=== PATIENT | female | born 1950 | race Two or more races ===

== ENCOUNTER 2016-06-27 13:50 | Emergency (ER) | payer MEDICAID ==
--- NOTE | 2016-06-27 14:24 | ER Document Report ---
ED Extremity Problem, Lower - General Chief Complaint: Knee Pain Stated Complaint: KNEE PAIN Mode of Arrival: Medic Information source: Transfer Record Notes: Patient presents with a three-day history of right knee pain and swelling. Patient denies any injury. Patient denies any recent illness. TRAVEL OUTSIDE OF THE [place] IN LAST 30 DAYS: No - HPI Patient complains to provider of: Pain, Swelling Location: Knee Occurred: Other - 3 days Onset/Duration: Persistent Quality of pain: Achy Pain Level: 3 Context: denies: Recent surgery Exacerbated by: Movement Relieved by: Nothing - Related Data Allergies/Adverse Reactions: No Known Allergies Allergy (Verified 09/17/15 10:50) Past Medical History - General Information source: Patient, Transfer Record Cannot obtain history due to: Other - Patient with reported history of dementia although seems to answer questions appropriately - Social History Smoking Status: Never Smoker Frequency of alcohol use: None Drug Abuse: None Lives with: [facility] Family History: Reviewed & Not Pertinent - Past Medical History Cardiac Medical History: Reports: Hx Hypercholesterolemia, Hx Hypertension Neurological Medical History: Reports: Hx Seizures - Negative EEG Endocrine Medical History: Reports: Hx Diabetes Mellitus Type 2, Hx Hypothyroidism GI Medical History: Reports: Hx Gastroesophageal Reflux Disease Psychiatric Medical History: Reports: Hx Bipolar Disorder - skitzoaffective dementia, Hx Dementia, Hx Depression Past Surgical History: Reports: Hx Tubal Ligation - Immunizations Hx Diphtheria, Pertussis, Tetanus Vaccination: No Review of Systems - Review of Systems Constitutional: No symptoms reported. denies: Fever EENT: No symptoms reported Cardiovascular: No symptoms reported Respiratory: No symptoms reported Gastrointestinal: No symptoms reported. denies: Vomiting Genitourinary: No symptoms reported Female Genitourinary: No symptoms reported Musculoskeletal: Joint pain - Right knee Skin: No symptoms reported Hematologic/Lymphatic: No symptoms reported Neurological/Psychological: No symptoms reported Physical Exam - Vital signs Vitals: Temp Pulse Resp BP Pulse Ox 97.6 F 103 H 18 139/69 H 94 06/27/16 14:02 06/27/16 14:02 06/27/16 14:02 06/27/16 14:02 06/27/16 14:02 - General General appearance: Appears well, Alert In distress: None - Respiratory Respiratory status: No respiratory distress Chest status: Nontender Breath sounds: Normal Chest palpation: Normal - Cardiovascular Rhythm: Regular Heart sounds: S1 appreciated, S2 appreciated - Abdominal Inspection: Normal Distension: No distension Bowel sounds: Normal Tenderness: Nontender - Back Back: Normal. No: CVA tenderness - Extremities General upper extremity: Normal inspection, Normal ROM General lower extremity: Edema - Right knee, Normal ROM Knee: Tender - Right knee tenderness, Joint effusion - Mild. No: Ecchymosis, Laxity with valgus stress, Laxity with varus stress - Neurological Neuro grossly intact: Yes Cognition: Normal Orientation: AAOx4 [place] Coma Scale Eye Opening: Spontaneous Dimitri Coma Scale Verbal: Oriented [place] Coma Scale Motor: Obeys Commands Dimitri Coma Scale Total: 15 - Psychological Associated symptoms: Normal affect, Normal mood - Skin Skin Temperature: Warm Skin Moisture: Dry Skin Color: Normal Course - Re-evaluation Re-evalutation: 06/27/16 14:[address] Nichols, Dr. Nichols to bedside for examination, does not suspect septic joint. - Vital Signs Vital signs: Temp Pulse Resp BP Pulse Ox 98.7 F 100 18 138/43 H 93 06/27/16 17:45 06/27/16 17:45 06/27/16 14:02 06/27/16 17:45 06/27/16 17:45 - Laboratory Result Diagrams: 06/27/16 16:13 06/27/16 16:13 Laboratory results interpreted by me: 06/27/16 06/27/16 16:13 16:13 RDW 14.4 H Creatinine 0.50 L Glucose 172 H AST 12 L Labs- Entire Visit 06/27/16 06/27/16 16:13 16:13 WBC 8.6 RBC 4.25 Hgb 12.1 Hct 36.9 MCV 87 MCH 28.4 MCHC 32.7 RDW 14.4 H Plt Count 225 Seg Neutrophils % 64.9 Lymphocytes % 20.5 Monocytes % 9.4 Eosinophils % 4.7 Basophils % 0.5 Absolute Neutrophils 5.6 Absolute Lymphocytes 1.8 Absolute Monocytes 0.8 Absolute Eosinophils 0.4 Absolute Basophils 0.0 ESR 16 Sodium 140.1 Potassium 4.3 Chloride 103 Carbon Dioxide 27 Anion Gap 10 BUN 20 Creatinine 0.50 L Est GFR ( Amer) > 60 Est GFR (Non-Af Amer) > 60 Glucose 172 H Uric Acid 6.5 Calcium 9.9 Total Bilirubin 0.3 Direct Bilirubin 0.0 AST 12 L ALT 13 Alkaline Phosphatase 83 C-Reactive Protein 5.9 Total Protein 6.4 Albumin 3.8 06/27/16 18:43 - Diagnostic Test Radiology reviewed: Reports reviewed Discharge - Discharge Clinical Impression: Arthritis Knee pain, right Qualifiers: Chronicity: unspecified Qualified Code(s): M25.561 - Pain in right knee Condition: Stable Disposition: HOME, SELF-CARE Instructions: Arthritis ([facility]), Acetaminophen Additional Instructions: Return immediately for any new or worsening symptoms Followup with your primary care provider, call tomorrow to make a followup appointment Follow up with orthopedic Dr. for any continued right knee joint pain You may take Tylenol [id number] to help with your pain symptoms. Referrals: BRITNEY KIMBROUGH MD [Primary Care Provider] - Follow up tomorrow [facility] [Provider Group] - Follow up in 3-5 days
[2016-06-27 16:24] LABS: ABSOLUTE EOSINOPHILS # (AUTO) 0.4 10^3/uL (0.0-0.6); ABSOLUTE LYMPHOCYTES (AUTO) 1.8 10^3/uL (0.5-4.7); ABSOLUTE MONOCYTES (AUTO) 0.8 10^3/uL (0.1-1.4); ABSOLUTE NEUT (AUTO) 5.6 10^3/uL (1.7-8.2); BASOPHILS % (AUTO) 0.5 % (0-2); EOSINOPHILS % (AUTO) 4.7 % (0-6); HEMATOCRIT 36.9 % (36.0-47.0); HEMOGLOBIN 12.1 g/dL (12.0-15.5); HGB HCT DIFFERENCE -0.6; LYMPHOCYTES % (AUTO) 20.5 % (13-45); MEAN CORPUSCULAR HEMOGLOBIN 28.4 pg (27.0-33.4); MEAN CORPUSCULAR HGB CONC 32.7 g/dL (32.0-36.0); MEAN CORPUSCULAR VOLUME 87 fl (80-97); MONOCYTES % (AUTO) 9.4 % (3-13); RED BLOOD COUNT 4.25 10^6/uL (3.72-5.28); RED CELL DISTRIBUTION WIDTH 14.4 % (11.5-14.0); SEGMENTED NEUTROPHILS % (AUTO) 64.9 % (42-78); WHITE BLOOD COUNT 8.6 10^3/uL (4.0-10.5)
[2016-06-27 16:40] LABS: ALANINE AMINOTRANSFERASE 13 U/L (9-52); ALBUMIN 3.8 g/dL (3.5-5.0); ALKALINE PHOSPHATASE 83 U/L (38-126); ANION GAP 10 (5-19); ASPARTATE AMINO TRANSFERASE 12 U/L (14-36); BILIRUBIN,TOTAL 0.3 mg/dL (0.2-1.3); BLOOD UREA NITROGEN 20 mg/dL (7-20); C-REACTIVE PROTEIN 5.9 mg/L (<10.0); CALCIUM 9.9 mg/dL (8.4-10.2); CARBON DIOXIDE 27 mmol/L (22-30); CHLORIDE 103 mmol/L (98-107); GLUCOSE 172 mg/dL (75-110); POTASSIUM 4.3 mmol/L (3.6-5.0); SODIUM 140.1 mmol/L (137-145); TOTAL PROTEIN 6.4 g/dL (6.3-8.2); URIC ACID 6.5 mg/dL (2.5-7.5)
[2016-06-27] MEDS ORDERED: ACETAMINOPHEN 325 MG TABLET PO ONE (17:00)
[2016-06-27 17:01] LABS: ERYTHROCYTE SEDIMENTATION RATE 16 mm/hr (0-30)
[2016-06-27 19:36] VITALS: BP 117/94
== END 2016-06-27 19:40 | disposition home or self-care (01) ==
LOC: ER 13:50
DX: M25.561 Pain in right knee (principal); M79.89 Other specified soft tissue disorders
CPT/HCPCS: 99284; 36415; 84550; 85025; 85652; 86140; 80053; 73564; J3490

== ENCOUNTER → 2016-10-05 | Outpatient (CLI) | payer MEDICAID ==
--- NOTE | 2016-10-05 12:30 | RADIOLOGY REPORT (SQ) ---
EXAM DESCRIPTION: MRI CERVICAL SPINE WITHOUT COMPLETED DATE/TIME: 10/05/2016 12:16 pm REASON FOR STUDY: RADICULOPATHY, CERVICAL REGION M25.511 PAIN IN RIGHT SHOULDER M25.512 PAIN IN LE FT SHOULDER M47.12 OTHER SPONDYLOSIS WITH MYELOPATHY, CERVICAL REGION COMPARISON: None. TECHNIQUE: Sagittal and Axial imaging includes T1, T2, STIR and gradient echo sequences. LIMITATIONS: Patient motion. FINDINGS: ALIGNMENT: Anatomic. VERTEBRAE: Intact. BONE MARROW: Normal. No marrow replacement or reactive changes. DISCS: Desiccation multiple levels. HARDWARE: None in the spine. CORD AND BASE OF BRAIN: Normal in size and signal intensity. SOFT TISSUES: No soft tissue masses. C1-C2: No significant spinal stenosis. C2-C3: Moderate spinal stenosis due to disc osteophyte complex and ligament thickening. Severe neura l foraminal narrowing bilaterally. C3-C4: Moderate -severe spinal stenosis. Severe neural foraminal narrowing bilaterally. C4-C5: Moderate spinal stenosis. Severe neural foraminal narrowing bilaterally. C5-C6: Mild spinal stenosis. Moderate right and severe left neural foraminal narrowing. C6-C7: No significant spinal stenosis. Severe neural foraminal narrowing bilaterally. C7-T1: Minimal spinal stenosis. Severe neural foraminal narrowing bilaterally. UPPER THORACIC: Incompletely imaged. No significant spinal stenosis or exit foraminal stenosis. OTHER: No other significant finding. IMPRESSION: Spinal stenosis at multiple levels, most severe at C3-4. Neural foraminal narrowing ass ociated with uncovertebral arthropathy. TECHNICAL DOCUMENTATION: JOB ID: [id number] [employer]- All Rights Reserved
== END ==
LOC: RAD 10:48
PROVIDERS: ATTEND Family Medicine Geriatric Medicine
DX: M25.511 Pain in right shoulder (principal); M25.512 Pain in left shoulder; M47.12 Other spondylosis with myelopathy, cervical region; M62.81 Muscle weakness (generalized)
CPT/HCPCS: 72141

== ENCOUNTER 2017-06-07 12:26 | Emergency (ER) | payer MEDICAID, MEDICARE ==
[2017-06-07] MEDS ORDERED: BENZONATATE 100 MG CAPSULE PO ONE (12:59)
--- NOTE | 2017-06-07 14:01 | RADIOLOGY REPORT (SQ) ---
EXAM DESCRIPTION: CHEST SINGLE VIEW COMPLETED DATE/TIME: 06/07/2017 1:27 pm REASON FOR STUDY: cough COMPARISON: August 2015 EXAM PARAMETERS: NUMBER OF VIEWS: One view. TECHNIQUE: Single frontal radiographic view of the chest acquired. RADIATION DOSE: NA LIMITATIONS: Patient is slightly rotated on the current study the FINDINGS: LUNGS AND PLEURA: No opacities, masses or pneumothorax. No pleural effusion. MEDIASTINUM AND HILAR STRUCTURES: No masses. Contour normal. HEART AND VASCULAR STRUCTURES: Allowing for the rotation the configuration of the heart mediastinal s tructures is unchanged. Cardiac silhouette is at the upper limits of normal in size. Tortuous thora cic aorta is seen. BONES: No acute findings. HARDWARE: None in the chest. OTHER: No other significant finding. IMPRESSION: NO ACUTE RADIOGRAPHIC FINDING IN THE CHEST. TECHNICAL DOCUMENTATION: JOB ID: [id number] [employer]- All Rights Reserved
--- NOTE | 2017-06-07 14:22 | ER Document Report ---
ED General - General Chief Complaint: Productive Cough Stated Complaint: COUGH Time Seen by Provider: 06/07/17 12:35 TRAVEL OUTSIDE OF THE [place] IN LAST 30 DAYS: No - HPI Patient complains to provider of: Cough Notes: Patient coming in for local snf at her request for evaluation of cough. Patient states coughing translation for the last 1-2 months. Patient is unaware if she been on any antibiotics. Patient denies any production of cough denies any fevers chills nausea vomiting diarrhea. Upon reviewing of the snf records patient recently finished Tamiflu Cipro and has been receiving duo nebs. Patient upon my evaluation resting comfortably speaking full sentences no signs of any obvious distress. - Related Data Allergies/Adverse Reactions: No Known Allergies Allergy (Verified 09/17/15 10:50) Past Medical History - Social History Smoking Status: Never Smoker Chew tobacco use (# tins/day): No Frequency of alcohol use: None Drug Abuse: None Family History: Reviewed & Not Pertinent Patient has suicidal ideation: No Patient has homicidal ideation: No - Past Medical History Cardiac Medical History: Reports: Hx Hypercholesterolemia, Hx Hypertension Neurological Medical History: Reports: Hx Seizures - Negative EEG Endocrine Medical History: Reports: Hx Diabetes Mellitus Type 2, Hx Hypothyroidism Renal/ Medical History: Denies: Hx Peritoneal Dialysis GI Medical History: Reports: Hx Gastroesophageal Reflux Disease Psychiatric Medical History: Reports: Hx Bipolar Disorder - skitzoaffective dementia, Hx Dementia, Hx Depression Past Surgical History: Reports: Hx Tubal Ligation - Immunizations Hx Diphtheria, Pertussis, Tetanus Vaccination: No Review of Systems - Review of Systems Constitutional: No symptoms reported EENT: No symptoms reported Cardiovascular: No symptoms reported Respiratory: Cough Gastrointestinal: No symptoms reported Genitourinary: No symptoms reported Female Genitourinary: No symptoms reported Musculoskeletal: No symptoms reported Skin: No symptoms reported Hematologic/Lymphatic: No symptoms reported Neurological/Psychological: No symptoms reported Physical Exam - Vital signs Interpretation: Normal - General General appearance: Appears well, Alert - HEENT Head: Normocephalic, Atraumatic Eyes: Normal Pupils: PERRL - Respiratory Respiratory status: No respiratory distress Chest status: Nontender Breath sounds: Normal Chest palpation: Normal - Cardiovascular Rhythm: Regular Heart sounds: Normal auscultation Murmur: No - Abdominal Inspection: Normal Distension: No distension Bowel sounds: Normal Tenderness: Nontender Organomegaly: No organomegaly - Back Back: Normal, Nontender - Extremities General upper extremity: Normal inspection, Nontender, Normal color, Normal ROM , Normal temperature General lower extremity: Normal inspection, Nontender, Normal color, Normal ROM , Normal temperature, Normal weight bearing. No: Alejandro's sign - Neurological Neuro grossly intact: Yes Cognition: Normal [place] Coma Scale Eye Opening: Spontaneous [place] Coma Scale Verbal: Oriented [place] Coma Scale Motor: Obeys Commands Dimitri Coma Scale Total: 15 Speech: Normal Motor strength normal: LUE, RUE, LLE, RLE Sensory: Normal - Psychological Associated symptoms: Normal affect, Normal mood - Skin Skin Temperature: Warm Skin Moisture: Dry Skin Color: Normal Course - Re-evaluation Re-evalutation: 06/07/17 14:22 Chest x-ray was performed showing no signs of infectious pathology. Patient vital signs are otherwise normal no signs of hypoxia fever patient will be discharged home with a prescription for Tessalon Perles. Discharge - Discharge Clinical Impression: Cough Condition: Good Disposition: HOME, SELF-CARE Instructions: Cough Suppressant & Expectorant Medications Additional Instructions: Follow-up with your primary care physician in 3-5 days take medication as prescribed return to ER for any other concerning Prescriptions: Benzonatate [Tessalon Perles 100 mg Capsule] 100 mg PO ASDIR PRN #40 capsule PRN Reason:
[2017-06-07 15:36] VITALS: BP 133/81
== END 2017-06-07 15:35 | disposition home or self-care (01) ==
LOC: ER 12:26
DX: R05 Cough (principal)
CPT/HCPCS: 99284; 71045; J3490

== ENCOUNTER 2018-07-02 05:55 | Inpatient (IN) | payer MEDICARE, MEDICAID ==
[2018-07-02] MEDS ORDERED: IMIPENEM/CILASTATIN SODIUM INJ 500 MG VIAL IV ONE (06:04)
[2018-07-02] MEDS ORDERED: ACETAMINOPHEN 325 MG TABLET PO ONE (06:04)
--- NOTE | 2018-07-02 06:17 | ER Document Report ---
ED General - General Stated Complaint: ALTERED MENTAL STATUS Time Seen by Provider: 07/02/18 06:04 Primary Care Provider: AMY HAIDER MD [Primary Care Provider] - Follow up as needed TRAVEL OUTSIDE OF THE [place] IN LAST 30 DAYS: No - HPI Notes: Patient is a 67-year-old female that presents to the emergency department for chief complaint of altered mental status. Patient presents by EMS from long-term facility. She has a reported history of dementia and EMS states her baseline is loud speaking and argumentative with staff. Patient is mostly Tuvaluan-speaking and HPI was translated with the assistance of Tuvaluan-speaking staff. Patient was reportedly having decreased mental status yesterday becoming more somnolent and confused. She began having fevers last night around 3 AM. Patient is complaining of "stomach pain", nausea and vomiting. She denies any diarrhea or constipation. She denies any chest pain, cough and shortness of breath. HPI is limited because of patient's current mental status. Past Medical History: Diabetes, dementia, seizures Past Surgical History: Reviewed in chart Social History: Denies tobacco and alcohol use Family History: Reviewed and noncontributory for presenting illness Allergies: Reviewed, see documented allergy list. REVIEW OF SYSTEMS: CONSTITUTIONAL : fever No chills No diaphoresis No recent illness EENT: No vision changes No congestion No sore throat CARDIOVASCULAR: No chest pain No palpitations RESPIRATORY: No shortness of breath No cough No difficulty breathing GASTROINTESTINAL: abdominal pain nausea vomiting No diarrhea GENITOURINARY: No dysuria No hematuria No difficulty urinating MUSCULOSKELETAL: No back pain No leg pain No arm pain SKIN: No rashes No lesions LYMPHATIC: No swollen, enlarged glands. NEUROLOGICAL: No lightheadedness No headache No weakness No paresthesias PSYCHIATRIC: No anxiety No depression PHYSICAL EXAMINATION: Vital signs reviewed, nursing noted reviewed. GENERAL: Mildly diaphoretic, well-nourished and in no acute distress. HEAD: Atraumatic, normocephalic. EYES: Eyes appear normal, extraocular movements intact, sclera anicteric, conjunctiva are normal. ENT: nares patent, oropharynx clear without exudates. Mildly dry mucous membranes. NECK: Normal range of motion, supple without lymphadenopathy LUNGS: Breath sounds clear to auscultation bilaterally and equal. No wheezes rales or rhonchi. HEART: Regular rate and rhythm without murmurs ABDOMEN: Soft, nontender, normoactive bowel sounds. No rebound, guarding, or rigidity. No masses appreciated. EXTREMITIES: Nontender, good range of motion, trace pretibial edema. Right hand contracture NEUROLOGICAL: Oriented to person and place. Disoriented to time. Moves all extremities spontaneously Motor and sensory grossly intact on exam. PSYCH: Normal mood, normal affect. SKIN: Warm, mildly diaphoretic, normal turgor, no rashes or lesions noted on exposed skin - Related Data Allergies/Adverse Reactions: No Known Allergies Allergy (Verified 09/17/15 10:50) Past Medical History - Social History Smoking Status: Never Smoker Family History: Reviewed & Not Pertinent - Past Medical History Cardiac Medical History: Reports: Hx Hypercholesterolemia, Hx Hypertension Neurological Medical History: Reports: Hx Seizures - Negative EEG Endocrine Medical History: Reports: Hx Diabetes Mellitus Type 2, Hx Hypothyroidism Renal/ Medical History: Denies: Hx Peritoneal Dialysis GI Medical History: Reports: Hx Gastroesophageal Reflux Disease Psychiatric Medical History: Reports: Hx Bipolar Disorder - skitzoaffective dementia, Hx Dementia, Hx Depression Past Surgical History: Reports: Hx Tubal Ligation - Immunizations Hx Diphtheria, Pertussis, Tetanus Vaccination: No Physical Exam - Vital signs Vitals: Resp 18 07/02/18 06:01 Course - Re-evaluation Re-evalutation: 07/02/18 06:18 Vitals reviewed. Nursing notes reviewed. Patient is awake and alert. She is m ildly diaphoretic with dry mucous membranes. Patient was vomiting and the back of the ambulance prior to arrival. She was given IV fluids, Tylenol and antiemetics for symptomatic management. 07/02/18 07:55 Urinalysis is consistent with UTI. Patient started on IV Rocephin. CBC shows no leukocytosis. The remainder of blood work is still pending. Patient appears more alert and has had conversations in Vietnamese with nursing staff. She is now oriented to time as well. 07/02/18 08:59 Patient has an elevated lactate at 3.2. She also is in acute renal failure with a creatinine of 2.2. This is consistent with severe sepsis and dehydration. Patient is started on LR. She will be admitted to the hospital for further management. Case discussed with Dr. John who accepts admission. Chest X-Ray 07/02/18 06:05 IMPRESSION: No acute cardiopulmonary findings. Mildly enlarged cardiac silhouette. Chest X-Ray 07/02/18 06:05 IMPRESSION: No acute cardiopulmonary findings. Mildly enlarged cardiac silhouette. Laboratory 07/02/18 07/02/18 07/02/18 06:50 07:21 07:21 WBC 10.4 RBC 3.92 Hgb 11.2 L Hct 33.2 L MCV 85 MCH 28.4 MCHC 33.7 RDW 15.7 H Plt Count 217 Seg Neutrophils % 78.9 H Lymphocytes % 13.4 Monocytes % 4.1 Eosinophils % 3.4 Basophils % 0.2 Absolute Neutrophils 8.2 Absolute Lymphocytes 1.4 Absolute Monocytes 0.4 Absolute Eosinophils 0.4 Absolute Basophils 0.0 PT 12.6 INR 0.90 VBG pH VBG pCO2 VBG HCO3 VBG Base Excess Sodium Potassium Chloride Carbon Dioxide Anion Gap BUN Creatinine Est GFR ( Amer) Est GFR (Non-Af Amer) Glucose Lactic Acid Calcium Total Bilirubin Direct Bilirubin Neonat Total Bilirubin Neonat Direct Bilirubin Neonat Indirect Bili AST ALT Alkaline Phosphatase Troponin I Total Protein Albumin Lipase Urine Color YELLOW Urine Appearance CLOUDY Urine pH 5.0 Ur Specific [place] 1.020 Urine Protein NEGATIVE Urine Glucose (UA) 50 H Urine Ketones NEGATIVE Urine Blood SMALL H Urine Nitrite NEGATIVE Urine Bilirubin SMALL H Urine Urobilinogen NEGATIVE Ur Leukocyte Esterase LARGE H Urine WBC (Auto) >182 Urine RBC (Auto) 47 U Hyaline Cast (Auto) 6 Urine Bacteria (Auto) 3+ Urine WBC Clumps MANY Urine Mucus (Auto) RARE Urine Ascorbic Acid NEGATIVE 07/02/18 07/02/18 07/02/18 07:21 07:21 07:21 WBC RBC Hgb Hct MCV MCH MCHC RDW Plt Count Seg Neutrophils % Lymphocytes % Monocytes % Eosinophils % Basophils % Absolute Neutrophils Absolute Lymphocytes Absolute Monocytes Absolute Eosinophils Absolute Basophils PT INR VBG pH 7.35 VBG pCO2 48.0 VBG HCO3 25.8 VBG Base Excess -0.2 Sodium 136.6 L Potassium 5.3 H Chloride 97 L Carbon Dioxide 25 Anion Gap 15 BUN 50 H Creatinine 2.20 H Est GFR ( Amer) 27 L Est GFR (Non-Af Amer) 22 L Glucose 300 H Lactic Acid 3.2 H Calcium 9.6 Total Bilirubin 0.3 Direct Bilirubin 0.3 Neonat Total Bilirubin Not Reportable Neonat Direct Bilirubin Not Reportable Neonat Indirect Bili Not Reportable AST 16 ALT 24 Alkaline Phosphatase 112 Troponin I Total Protein 7.0 Albumin 4.1 Lipase 138.6 Urine Color Urine Appearance Urine pH Ur Specific [place] Urine Protein Urine Glucose (UA) Urine Ketones Urine Blood Urine Nitrite Urine Bilirubin Urine Urobilinogen Ur Leukocyte Esterase Urine WBC (Auto) Urine RBC (Auto) U Hyaline Cast (Auto) Urine Bacteria (Auto) Urine WBC Clumps Urine Mucus (Auto) Urine Ascorbic Acid 07/02/18 07:21 WBC RBC Hgb Hct MCV MCH MCHC RDW Plt Count Seg Neutrophils % Lymphocytes % Monocytes % Eosinophils % Basophils % Absolute Neutrophils Absolute Lymphocytes Absolute Monocytes Absolute Eosinophils Absolute Basophils PT INR VBG pH VBG pCO2 VBG HCO3 VBG Base Excess Sodium Potassium Chloride Carbon Dioxide Anion Gap BUN Creatinine Est GFR ( Amer) Est GFR (Non-Af Amer) Glucose Lactic Acid Calcium Total Bilirubin Direct Bilirubin Neonat Total Bilirubin Neonat Direct Bilirubin Neonat Indirect Bili AST ALT Alkaline Phosphatase Troponin I < 0.012 Total Protein Albumin Lipase Urine Color Urine Appearance Urine pH Ur Specific [place] Urine Protein Urine Glucose (UA) Urine Ketones Urine Blood Urine Nitrite Urine Bilirubin Urine Urobilinogen Ur Leukocyte Esterase Urine WBC (Auto) Urine RBC (Auto) U Hyaline Cast (Auto) Urine Bacteria (Auto) Urine WBC Clumps Urine Mucus (Auto) Urine Ascorbic Acid - Vital Signs Vital signs: Temp Pulse Resp BP Pulse Ox 97.7 F 75 20 119/60 95 07/02/18 06:05 07/02/18 07:33 07/02/18 07:33 07/02/18 07:33 07/02/18 07:33 - Laboratory Result Diagrams: 07/02/18 07:21 07/02/18 07:21 Laboratory results interpreted by me: 07/02/18 07/02/18 07/02/18 06:50 07:21 07:21 Hgb 11.2 L Hct 33.2 L RDW 15.7 H Seg Neutrophils % 78.9 H Sodium 136.6 L Potassium 5.3 H Chloride 97 L BUN 50 H Creatinine 2.20 H Est GFR ( Amer) 27 L Est GFR (Non-Af Amer) 22 L Glucose 300 H Lactic Acid Urine Glucose (UA) 50 H Urine Blood SMALL H Urine Bilirubin SMALL H Ur Leukocyte Esterase LARGE H 07/02/18 07:21 Hgb Hct RDW Seg Neutrophils % Sodium Potassium Chloride BUN Creatinine Est GFR ( Amer) Est GFR (Non-Af Amer) Glucose Lactic Acid 3.2 H Urine Glucose (UA) Urine Blood Urine Bilirubin Ur Leukocyte Esterase - EKG Interpretation by Me Additional EKG results interpreted by me: 07/02/18 06:17 Interpreted by myself 0612: Normal sinus rhythm, rate 68, normal axis, no ectopy, no ST elevation Discharge - Discharge Clinical Impression: Severe sepsis UTI (urinary tract infection) Qualifiers: Urinary tract infection type: site unspecified Hematuria presence: with hematuria Qualified Code(s): N39.0 - Urinary tract infection, site not specified Acute renal failure Qualifiers: Acute renal failure type: unspecified Qualified Code(s): N17.9 - Acute kidney failure, unspecified Condition: Stable Disposition: ADMITTED INPATIENT Admitting Provider: Hospitalist Unit Admitted: Telemetry Referrals: AMY HAIDER MD [Primary Care Provider] - Follow up as needed
[2018-07-02] MEDS ORDERED: ONDANSETRON HCL INJ/PF 4 MG/2 ML SDV IV ONE (06:18)
[2018-07-02] MEDS ORDERED: ONDANSETRON 4 MG TAB.RAPDIS PO ONE (06:25)
[2018-07-02] MEDS ORDERED: ONDANSETRON 4 MG TAB.RAPDIS ONE (06:25)
--- NOTE | 2018-07-02 06:58 | EKG REPORT ---
SEVERITY:- NORMAL ECG - SINUS RHYTHM : Confirmed by: Janie Edwards 02-Jul-2018 06:58:06
--- NOTE | 2018-07-02 07:20 | RADIOLOGY REPORT (SQ) ---
EXAM DESCRIPTION: XR CHEST 1 VIEW COMPLETED DATE/TME: 07/02/2018 06:05 CLINICAL HISTORY: 67 years Female, cough COMPARISON: 01/15/16. [id number]. NUMBER OF VIEWS/TECHNIQUE: 1/AP Limitation: Rotation. FINDINGS: Adequate lung volume, clear parenchyma, moderately enlarged cardiac silhouette, and intact bony thorax. Upper thoracic spinal hardware. Stable. IMPRESSION: No acute cardiopulmonary findings. Mildly enlarged cardiac silhouette.
[2018-07-02 07:42] LABS: APPEARANCE,URINE CLOUDY; BILIRUBIN,URINE SMALL (NEGATIVE); COLOR,URINE YELLOW; GLUCOSE, URINE 50 mg/dL (NEGATIVE); KETONES,URINE NEGATIVE (NEGATIVE); LEUKOCYTE ESTERASE,URINE LARGE (NEGATIVE); NITRITE,URINE NEGATIVE (NEGATIVE); PROTEIN,URINE NEGATIVE (NEGATIVE); UROBILINOGEN,URINE NEGATIVE mg/dL (<2.0)
[2018-07-02 07:42] LABS: ABSOLUTE EOSINOPHILS # (AUTO) 0.4 10^3/uL (0.0-0.6); ABSOLUTE LYMPHOCYTES (AUTO) 1.4 10^3/uL (0.5-4.7); ABSOLUTE MONOCYTES (AUTO) 0.4 10^3/uL (0.1-1.4); ABSOLUTE NEUT (AUTO) 8.2 10^3/uL (1.7-8.2); BASOPHILS % (AUTO) 0.2 % (0-2); EOSINOPHILS % (AUTO) 3.4 % (0-6); HEMATOCRIT 33.2 % (36.0-47.0); HEMOGLOBIN 11.2 g/dL (12.0-15.5); LYMPHOCYTES % (AUTO) 13.4 % (13-45); MEAN CORPUSCULAR HEMOGLOBIN 28.4 pg (27.0-33.4); MEAN CORPUSCULAR HGB CONC 33.7 g/dL (32.0-36.0); MEAN CORPUSCULAR VOLUME 85 fl (80-97); MONOCYTES % (AUTO) 4.1 % (3-13); PLATELET COUNT 217 10^3/uL (150-450); RED BLOOD COUNT 3.92 10^6/uL (3.72-5.28); RED CELL DISTRIBUTION WIDTH 15.7 % (11.5-14.0); SEGMENTED NEUTROPHILS % (AUTO) 78.9 % (42-78); TOTAL CELLS COUNTED % (AUTO) 100 %; VENOUS BLOOD BASE EXCESS -0.2 mmol/L; VENOUS BLOOD HCO3 25.8 mmol/L (20-32); VENOUS BLOOD PH 7.35 (7.30-7.42); WHITE BLOOD COUNT 10.4 10^3/uL (4.0-10.5)
[2018-07-02 07:53] LABS: PROTHROMBIN TIME 12.6 SEC (11.4-15.4)
[2018-07-02] MEDS ORDERED: CEFTRIAXONE 1 GM/D5W RTU 1 GM/50 ML RTUPB IV ONE (07:54)
[2018-07-02 08:02] LABS: ALANINE AMINOTRANSFERASE 24 U/L (9-52); ALBUMIN 4.1 g/dL (3.5-5.0); ALKALINE PHOSPHATASE 112 U/L (38-126); ANION GAP 15 (5-19); ASPARTATE AMINO TRANSFERASE 16 U/L (14-36); BILIRUBIN,DIRECT 0.3 mg/dL (0.0-0.4); BILIRUBIN,TOTAL 0.3 mg/dL (0.2-1.3); BLOOD UREA NITROGEN 50 mg/dL (7-20); CALCIUM 9.6 mg/dL (8.4-10.2); CARBON DIOXIDE 25 mmol/L (22-30); CHLORIDE 97 mmol/L (98-107); GLUCOSE 300 mg/dL (75-110); LIPASE 138.6 U/L (23-300); POTASSIUM 5.3 mmol/L (3.6-5.0); SODIUM 136.6 mmol/L (137-145)
[2018-07-02] MEDS ORDERED: RINGERS SOLUTION,LACTATED 1,000 ML IV ONE (08:44)
[2018-07-02] MEDS ORDERED: GLUCAGON,HUMAN RECOMB 1 MG INJ IM PRN (11:09)
[2018-07-02] MEDS ORDERED: DEXTROSE 40% GEL 15 GM TUBE PO PRN ×2 (11:09)
[2018-07-02] MEDS ORDERED: DEXTROSE 50%-WATER 25 GM/50 ML DISP.SYRIN IV PRN ×2 (11:09)
--- NOTE | 2018-07-02 11:14 | PDOC H&P ---
History of Present Illness Admission Date/PCP: 07/02/18 09:06 AMY HAIDER MD Patient complains of: worsening confusion History of Present Illness: JOZEF RICHARDSON is a 67 year old female with a PMH of HTN, history of seizure, dementia, DM 2, hypothyroidism and hyperlipidemia who was brought in from a group home home who was brought in due to worsening confusion. Patient is mostly Peruvian-speaking. Per ER provider, EMS states her baseline is loud speaking and argumentative with staff and that patient was reportedly having decreased mental status yesterday becoming more somnolent and confused. Patient also had reported fever earlier today at 3 am. In the ER, she was found to have UTI and elevated lactate and was started on IV fluids. Upon encounter, she is lethargic. She is arousable and is able to tell me her name and that she knows she is a hospital but needs constant prompting to carry on with conversation. She does say she has been having some discomfort urinating and complains of vague hypogastric discomfort. Past Medical History Cardiac Medical History: Reports: Hyperlipidema, Hypertension Neurological Medical History: Reports: Seizures - Negative EEG Endocrine Medical History: Reports: Diabetes Mellitus Type 2, Hypothyroidism GI Medical History: Reports: Gastroesophageal Reflux Disease Psychiatric Medical History: Reports: Bipolar Disorder - skitzoaffective dementia, Dementia, Depression Past Surgical History Past Surgical History: Reports: Tubal Ligation Social History Smoking Status: Never Smoker Frequency of Alcohol Use: None Hx Recreational Drug Use: No Drugs: None Hx Prescription Drug Abuse: No Family History Family History: Reviewed & Not Pertinent Parental Family History Reviewed: Yes - no premature CAD Children Family History Reviewed: No Sibling(s) Family History Reviewed.: No Medication/Allergy Home Medications: Aspirin [Aspirin 81 mg Chewable Tablet] 81 mg PO DAILY 08/31/15 Metformin HCl [Glucophage] 500 mg PO BID 08/31/15 Simethicone [Gas Relief] 180 mg PO DAILY 08/31/15 Acetaminophen [Tylenol Extra Strength 500 mg Tablet] 1 tab PO Q8 01/16/16 Meloxicam [Mobic 15 mg Tablet] 15 mg PO QAM 01/16/16 Baclofen [Baclofen 10 mg Tablet] 10 mg PO TID 07/02/18 Brimonidine Tartrate/Timolol [Combigan 0.2%-0.5% Eye Drops] 5 ml OU TID 07/02/18 Brinzolamide/Brimonidine Tart [Simbrinza 1%-0.2% Eye Drops] 1 drop RT_EYE TID 0 07/02/18 Cetirizine HCl [Zyrtec 10 mg Tablet] 10 mg PO DAILY 07/02/18 Docusate Sodium [Colace 100 mg Capsule] 100 mg PO DAILY 07/02/18 Fluticasone Propionate [Flonase Nasal [place] 50 Mcg/[place] 16 gm] 1 spray NASL DAILY 07/02/18 Furosemide [Lasix 40 mg Tablet] 40 mg PO QAM 07/02/18 Latanoprost [Xalatan 0.005% Oph Soln 2.5 ml] 1 drop OU QHS 07/02/18 Levothyroxine Sodium [Synthroid] 125 mcg PO Q6AM 07/02/18 Sennosides/Docusate Sodium [Senna-S Tablet] 2 tab PO QAM 07/02/18 Tramadol HCl [Ultram 50 mg Tablet] 50 mg PO Q8HP PRN 07/02/18 Trolamine Salicylate/Aloe Vera [Aspercreme 10% Cream] 1 applic TP TID 07/02/18 Allergies/Adverse Reactions: levetiracetam [From [facility]] Allergy (Unknown, Verified 07/02/18 14:32) Review of Systems All systems: reviewed and no additional remarkable complaints except as stated - as mentioned in HPI Physical Exam Vital Signs: Temp Pulse Resp BP Pulse Ox 97.5 F 75 18 121/81 92 07/02/18 09:01 07/02/18 07:33 07/02/18 09:01 07/02/18 09:01 07/02/18 09:01 Intake & Output 07/01/18 07/02/18 07/03/18 06:59 06:59 06:59 Intake Total 1050 Balance 1050 Weight 207 lb 3.752 oz General appearance: PRESENT: well-developed, well-nourished, other - lethargic Head exam: PRESENT: atraumatic, normocephalic Eye exam: PRESENT: conjunctiva pink, EOMI, PERRLA. ABSENT: scleral icterus Ear exam: PRESENT: normal external ear exam Neck exam: ABSENT: carotid bruit, JVD, lymphadenopathy, thyromegaly Respiratory exam: PRESENT: clear to auscultation jacobo. ABSENT: rales, rhonchi, wheezes Cardiovascular exam: PRESENT: RRR. ABSENT: diastolic murmur, rubs, systolic murmur Pulses: PRESENT: normal dorsalis pedis pul Rectal exam: PRESENT: deferred Extremities exam: PRESENT: +1 edema Neurological exam: PRESENT: oriented to person, oriented to place, CN II-XII grossly intact, other - lethargic. ABSENT: oriented to time, motor sensory deficit Results Laboratory Results: 07/02/18 07:21 07/02/18 07:21 07/02/18 07/02/18 07/02/18 06:50 07:21 07:21 WBC 10.4 RBC 3.92 Hgb 11.2 L Hct 33.2 L MCV 85 MCH 28.4 MCHC 33.7 RDW 15.7 H Plt Count 217 Seg Neutrophils % 78.9 H Lymphocytes % 13.4 Monocytes % 4.1 Eosinophils % 3.4 Basophils % 0.2 Absolute Neutrophils 8.2 Absolute Lymphocytes 1.4 Absolute Monocytes 0.4 Absolute Eosinophils 0.4 Absolute Basophils 0.0 VBG pH VBG pCO2 VBG HCO3 VBG Base Excess Sodium 136.6 L Potassium 5.3 H Chloride 97 L Carbon Dioxide 25 Anion Gap 15 BUN 50 H Creatinine 2.20 H Est GFR ( Amer) 27 L Est GFR (Non-Af Amer) 22 L Glucose 300 H Lactic Acid Calcium 9.6 Total Bilirubin 0.3 AST 16 ALT 24 Alkaline Phosphatase 112 Total Protein 7.0 Albumin 4.1 Lipase 138.6 Urine Color YELLOW Urine Appearance CLOUDY Urine pH 5.0 Ur Specific [place] 1.020 Urine Protein NEGATIVE Urine Glucose (UA) 50 H Urine Ketones NEGATIVE Urine Blood SMALL H Urine Nitrite NEGATIVE Ur Leukocyte Esterase LARGE H Urine WBC (Auto) >182 Urine RBC (Auto) 47 07/02/18 07/02/18 07:21 07:21 WBC RBC Hgb Hct MCV MCH MCHC RDW Plt Count Seg Neutrophils % Lymphocytes % Monocytes % Eosinophils % Basophils % Absolute Neutrophils Absolute Lymphocytes Absolute Monocytes Absolute Eosinophils Absolute Basophils VBG pH 7.35 VBG pCO2 48.0 VBG HCO3 25.8 VBG Base Excess -0.2 Sodium Potassium Chloride Carbon Dioxide Anion Gap BUN Creatinine Est GFR ( Amer) Est GFR (Non-Af Amer) Glucose Lactic Acid 3.2 H Calcium Total Bilirubin AST ALT Alkaline Phosphatase Total Protein Albumin Lipase Urine Color Urine Appearance Urine pH Ur Specific [place] Urine Protein Urine Glucose (UA) Urine Ketones Urine Blood Urine Nitrite Ur Leukocyte Esterase Urine WBC (Auto) Urine RBC (Auto) 07/02/18 07:21 Troponin I < 0.012 Impressions: Chest X-Ray 07/02/18 06:05 IMPRESSION: No acute cardiopulmonary findings. Mildly enlarged cardiac silhouette. Assessment & Plan - Diagnosis (1) Acute encephalopathy Is this a current diagnosis for this admission?: Yes Plan: Likely related to sepsis in a patient with dementia. Currently protecting her airway and saturating at 94% on room air. (2) Sepsis Is this a current diagnosis for this admission?: Yes Plan: Secondary to urinary tract infection. Lactic acid is elevated. Will cycle lactic acid. Continue IV fluids. Will continue Rocephin. Blood and urine cultures. (3) Acute renal failure Qualifiers: Acute renal failure type: unspecified Qualified Code(s): N17.9 - Acute kidney failure, unspecified Is this a current diagnosis for this admission?: Yes Plan: Likely pre renal vs septic ATN. Start IV fluids. Repeat BMP tomorrow. - Time Time Spent: 30 to 50 Minutes
--- NOTE | 2018-07-02 11:52 | RADIOLOGY REPORT (SQ) ---
EXAM DESCRIPTION: CT HEAD WITHOUT COMPLETED DATE/TIME: 07/02/2018 11:41 am REASON FOR STUDY: acute enceph COMPARISON: 2016. TECHNIQUE: Axial images acquired through the brain without intravenous contrast. Images reviewed wi th bone, brain and subdural windows. Additional sagittal and coronal reconstructions were generated. Images stored on PACS. All CT scanners at this facility use dose modulation, iterative reconstruction, and/or weight based d osing when appropriate to reduce radiation dose to as low as reasonably achievable (ALARA). [facility]: Dose Right [facility]: CareDose [facility]: Dose Right [facility]: Teradose 4D [facility]: [employer] RADIATION DOSE: CT Rad equipment meets quality standard of care and radiation dose reduction techniq ues were employed. CTDIvol: 53.2 mGy. DLP: 1017 mGy-cm. mGy. LIMITATIONS: None. FINDINGS: VENTRICLES: Prominent. CEREBRUM: No masses. No hemorrhage. No midline shift. Areas of low density in the white matter mos t likely due to chronic micro-vascular ischemic change. No evidence for acute infarction. CEREBELLUM: No masses. No hemorrhage. No alteration of density. No evidence for acute infarction. EXTRAAXIAL SPACES: Mild age-related involutional change. No fluid collections. No masses. ORBITS AND GLOBE: No intra- or extraconal masses. Normal contour of globe without masses. CALVARIUM: No fracture. PARANASAL SINUSES: No fluid or mucosal thickening. SOFT TISSUES: No mass or hematoma. OTHER: No other significant finding. IMPRESSION: MILD CHRONIC CHANGES OF ATROPHY AND MICROVASCULAR ISCHEMIA. NO ACUTE PROCESS. EVIDENCE OF ACUTE STROKE: NO. TECHNICAL DOCUMENTATION: JOB ID: [id number] Quality ID # [id number]: Final reports with documentation of one or more dose reduction techniques (e.g., Au tomated exposure control, adjustment of the mA and/or kV according to patient size, use of iterative reconstruction technique) 2010 [employer]- All Rights Reserved Reading location - IP/workstation name: [email or web address]
--- NOTE | 2018-07-02 11:57 | RADIOLOGY REPORT (SQ) ---
EXAM DESCRIPTION: CT ABD/PELVIS NO ORAL OR IV COMPLETED DATE/TIME: 07/02/2018 11:41 am REASON FOR STUDY: abd pain, CHAD, ?pyelo COMPARISON: CT abdomen pelvis 11/10/2015, 12/07/2015 TECHNIQUE: CT scan of the abdomen and pelvis performed without intravenous or oral contrast. Images reviewed with lung, soft tissue, and bone windows. Reconstructed coronal and sagittal MPR images revi ewed. All images stored on PACS. All CT scanners at this facility use dose modulation, iterative reconstruction, and/or weight based d osing when appropriate to reduce radiation dose to as low as reasonably achievable (ALARA). [facility]: Dose Right [facility]: CareDose [facility]: Dose Right [facility]: Teradose 4D [facility]: [employer] RADIATION DOSE: CT Rad equipment meets quality standard of care and radiation dose reduction techniq ues were employed. CTDIvol: 19.4 mGy. DLP: 1192 mGy-cm.mGy. LIMITATIONS: None. FINDINGS: LOWER CHEST: No significant findings. No nodules or infiltrates. NON-CONTRASTED LIVER, SPLEEN, ADRENALS: Evaluation limited by lack of IV contrast. No identified sign ificant masses. PANCREAS: No masses. No peripancreatic inflammatory changes. GALLBLADDER: No identified stones by CT criteria. No inflammatory changes to suggest cholecystitis. RIGHT KIDNEY AND URETER: No suspicious masses. Assessment limited by lack of IV contrast. No signif icant calcifications. No hydronephrosis or hydroureter. LEFT KIDNEY AND URETER: Left kidney is malrotated, with the renal pelvis facing ventrally. No suspi cious masses. Assessment limited by lack of IV contrast. No significant calcifications. No hydron ephrosis or hydroureter. AORTA AND RETROPERITONEUM: No aneurysm. No retroperitoneal masses or adenopathy. BOWEL AND PERITONEAL CAVITY: No CT evidence of bowel obstruction or free intraperitoneal air or fluid . Scattered colonic diverticuli without CT signs of acute diverticulitis. APPENDIX: Normal. PELVIS, BLADDER, AND ABDOMINAL WALL:No abnormal masses. No free fluid. Bladder normal. BONES: No significant findings. OTHER: No other significant finding. IMPRESSION: No acute findings COMMENT: Quality ID # [id number]: Final reports with documentation of one or more dose reduction techniques (e.g., Automated exposure control, adjustment of the mA and/or kV according to patient size, use of iterative reconstruction technique) TECHNICAL DOCUMENTATION: JOB ID: [id number] [employer]- All Rights Reserved Reading location - IP/workstation name: [email or web address]
[2018-07-02] MEDS: NORMAL SALINE 1000 ML 1,000 ML IV PRN ×2 (12:09→23:04)
[2018-07-02] MEDS: INSULIN LISPRO 100 UNIT/ML 3 ML VIAL SUBCUT SCH ×3 (12:09→23:05)
[2018-07-02 13:26] LABS: ANION GAP 13 (5-19); BLOOD UREA NITROGEN 47 mg/dL (7-20); CALCIUM 9.3 mg/dL (8.4-10.2); CARBON DIOXIDE 26 mmol/L (22-30); CHLORIDE 98 mmol/L (98-107); GLUCOSE 259 mg/dL (75-110); POTASSIUM 5.3 mmol/L (3.6-5.0); SODIUM 136.6 mmol/L (137-145)
[2018-07-02] MEDS: HEPARIN SOD (PORCINE) 5,000 UNIT/ML 1 ML SYRINGE SUBCUT SCH (23:04)
[2018-07-03] MEDS: NORMAL SALINE 1000 ML 1,000 ML IV PRN ×2 (05:42→14:55)
[2018-07-03] MEDS: LEVOTHYROXINE SODIUM 0.1 MG TABLET PO SCH (05:43)
[2018-07-03] MEDS: LEVOTHYROXINE SODIUM 0.025 MG TABLET PO SCH (05:43)
[2018-07-03] MEDS: TRAMADOL HCL 50 MG TABLET PO PRN ×2 (05:43→22:03)
[2018-07-03] MEDS: INSULIN LISPRO 100 UNIT/ML 3 ML VIAL SUBCUT SCH ×3 (05:44→17:08)
[2018-07-03] MEDS: ONDANSETRON HCL INJ/PF 4 MG/2 ML SDV IV PRN (05:49)
[2018-07-03] MEDS ORDERED: (PENDING PHARMACY ID) (Levothyroxine Sodium [Synthroid] 125 MCG) PO SCH (06:00)
[2018-07-03] MEDS: SENNOSIDES/DOCUSATE 8.6-50 MG 1 EACH TABLET PO SCH (07:51)
[2018-07-03] MEDS ORDERED: FONDAPARINUX SODIUM INJ 2.5 MG/0.5 ML DISP.SYRIN SUBCUT SCH (08:00)
[2018-07-03] MEDS ORDERED: SIMETHICONE 180 MG PO SCH (10:00)
[2018-07-03] MEDS ORDERED: (PENDING PHARMACY ID) (Brinzolamide/Brimonidine Tart [Simbrinza 1%-0.2% Eye Drops] 1 DROP) RT_EYE SCH (10:00)
[2018-07-03] MEDS ORDERED: (PENDING PHARMACY ID) (Brimonidine Tartrate/Timolol [Combigan 0.2%-0.5% Eye Drops] 5 ML) OU SCH ×2 (10:00→10:15)
[2018-07-03] MEDS ORDERED: ALOE VERA TP SCH (10:00)
[2018-07-03] MEDS ORDERED: TROLAMINE SALICYLATE TP SCH (10:00)
[2018-07-03] MEDS ORDERED: (PENDING PHARMACY ID) (Brinzolamide/Brimonidine Tart [Simbrinza 1%-0.2% Eye Drops] 1 DROP) OD SCH (10:15)
[2018-07-03] MEDS ORDERED: TROLAMINE SALICYLATE TOP SCH (10:30)
[2018-07-03] MEDS ORDERED: ALOE VERA TOP SCH (10:30)
[2018-07-03] MEDS: ASPIRIN 81 MG TABLET, CHEWABLE PO SCH (10:47)
[2018-07-03] MEDS: CEFTRIAXONE 1 GM/D5W RTU 1 GM/50 ML RTUPB IV SCH (10:47)
[2018-07-03] MEDS: HEPARIN SOD (PORCINE) 5,000 UNIT/ML 1 ML SYRINGE SUBCUT SCH ×2 (10:48→22:04)
--- NOTE | 2018-07-03 10:48 | PDOC PROGRESS REPORT ---
Subjective Progress Note for:: 07/03/18 Subjective:: 07/03/2018 67-year-old female admitted for acute and coagulopathy most likely secondary to UTI and sepsis. This morning patient alert and awake communicating well. She speaks minimal Maori. She is able to give her date of she did know where she is at and she told me she cannot walk complaining of cramps in the hands. T-max is 99.3 no acute events in the last 24 hours. Reason For Visit: ACUTE ENCEPHALOPATHY, SEPSIS Physical Exam Vital Signs: Temp Pulse Resp BP Pulse Ox 99.3 F 103 H 17 125/48 L 99 07/03/18 03:56 07/03/18 03:56 07/03/18 00:31 07/03/18 03:56 07/03/18 03:56 Intake & Output 07/02/18 07/03/18 07/04/18 06:59 06:59 06:59 Intake Total 4097 Balance 4097 Weight 94 kg 97 kg General appearance: PRESENT: no acute distress Head exam: PRESENT: atraumatic Eye exam: PRESENT: PERRLA Mouth exam: PRESENT: moist Neck exam: ABSENT: carotid bruit, JVD, lymphadenopathy, thyromegaly Respiratory exam: PRESENT: clear to auscultation jacobo. ABSENT: rales, rhonchi, wheezes Cardiovascular exam: PRESENT: tachycardia GI/Abdominal exam: PRESENT: normal bowel sounds, soft. ABSENT: distended, guarding, mass, organolmegaly, rebound, tenderness Extremities exam: PRESENT: +1 edema Neurological exam: PRESENT: alert, awake, oriented to person, oriented to place, oriented to time, oriented to situation, CN II-XII grossly intact. ABSENT: motor sensory deficit Psychiatric exam: PRESENT: appropriate affect, normal mood. ABSENT: homicidal ideation, suicidal ideation Results Laboratory Results: 07/02/18 07:21 07/02/18 12:12 07/02/18 07/02/18 07/02/18 07:21 12:12 12:12 Sodium 136.6 L Potassium 5.3 H Chloride 98 Carbon Dioxide 26 Anion Gap 13 BUN 47 H Creatinine 1.77 H Est GFR ( Amer) 35 L Est GFR (Non-Af Amer) 29 L Glucose 259 H Lactic Acid 3.0 H Calcium 9.3 TSH 0.65 07/02/18 07/02/1819 15:10 20:55 05:08 Sodium Potassium Chloride Carbon Dioxide Anion Gap BUN Creatinine Est GFR ( Amer) Est GFR (Non-Af Amer) Glucose Lactic Acid 2.2 H 2.4 H 1.0 Calcium TSH 07/02/18 07/02/18 07:21 12:12 Troponin I < 0.012 NT-Pro-B Natriuret Pep 233 Impressions: Head CT 07/02/18 00:00 IMPRESSION: MILD CHRONIC CHANGES OF ATROPHY AND MICROVASCULAR ISCHEMIA. NO ACUTE PROCESS. EVIDENCE OF ACUTE STROKE: NO. Chest X-Ray 07/02/18 06:05 IMPRESSION: No acute cardiopulmonary findings. Mildly enlarged cardiac silhouette. Abdomen/Pelvis CT 07/02/18 10:35 IMPRESSION: No acute findings Assessment & Plan - Diagnosis (1) Acute encephalopathy Is this a current diagnosis for this admission?: Yes Plan: 07/03/[id number]-acen-old female admitted for altered mental status/acute encephalopathy most likely secondary to UTI causing sepsis. Urine culture is positive for gram-negative rods. Blood cultures are negative so far. Patient is presently on IV Rocephin 1 g daily IV Levaquin 400 mg daily started today. Patient is alert and awake, communicating well today. (2) Sepsis Is this a current diagnosis for this admission?: Yes Plan: 07/03/2018-patient was admitted with sepsis elevated lactic acid levels, urine culture is positive for gram-negative rods. Also had altered mental status with acute kidney injury. Patient is presently on IV Rocephin and started on IV Levaquin today. (3) Acute renal failure Qualifiers: Qualified Code(s): N17.9 - Acute kidney failure, unspecified Is this a current diagnosis for this admission?: Yes Plan: 07/03/2018-patient's admission creatinine is 2.2 and it was improved to 1.77 today. Acute kidney injury most likely secondary to prerenal causes. Previous lab from June 2017 creatinine is 0.63. Plan is to recheck the labs tomorrow. - Time Time Spent with patient: 15-24 minutes Medications reviewed and adjusted accordingly: Yes Anticipated discharge: Other - Assisted living
[2018-07-03] MEDS ORDERED: SODIUM POLYSTYRENE SULFONATE 15 GM/60 ML PO ONE (11:00)
[2018-07-03] MEDS: DOCUSATE SODIUM 100 MG CAPSULE PO SCH (11:08)
[2018-07-03] MEDS: BACLOFEN 10 MG TABLET PO SCH ×3 (11:08→17:28)
[2018-07-03] MEDS: CETIRIZINE 10 MG TABLET PO SCH (11:08)
[2018-07-03 11:21] LABS: ABSOLUTE EOSINOPHILS # (AUTO) 0.3 10^3/uL (0.0-0.6); ABSOLUTE LYMPHOCYTES (AUTO) 1.2 10^3/uL (0.5-4.7); ABSOLUTE MONOCYTES (AUTO) 0.6 10^3/uL (0.1-1.4); ABSOLUTE NEUT (AUTO) 8.6 10^3/uL (1.7-8.2); BASOPHILS % (AUTO) 0.4 % (0-2); EOSINOPHILS % (AUTO) 3.2 % (0-6); HEMATOCRIT 32.4 % (36.0-47.0); HEMOGLOBIN 10.7 g/dL (12.0-15.5); LYMPHOCYTES % (AUTO) 11.1 % (13-45); MEAN CORPUSCULAR HEMOGLOBIN 28.2 pg (27.0-33.4); MEAN CORPUSCULAR HGB CONC 33.2 g/dL (32.0-36.0); MEAN CORPUSCULAR VOLUME 85 fl (80-97); MONOCYTES % (AUTO) 5.6 % (3-13); PLATELET COUNT 225 10^3/uL (150-450); RED BLOOD COUNT 3.81 10^6/uL (3.72-5.28); RED CELL DISTRIBUTION WIDTH 15.7 % (11.5-14.0); SEGMENTED NEUTROPHILS % (AUTO) 79.7 % (42-78); TOTAL CELLS COUNTED % (AUTO) 100 %; WHITE BLOOD COUNT 10.7 10^3/uL (4.0-10.5)
[2018-07-03 11:30] LABS: ALANINE AMINOTRANSFERASE 32 U/L (9-52); ALBUMIN 3.8 g/dL (3.5-5.0); ALKALINE PHOSPHATASE 109 U/L (38-126); ANION GAP 10 (5-19); ASPARTATE AMINO TRANSFERASE 17 U/L (14-36); BILIRUBIN,DIRECT 0.3 mg/dL (0.0-0.4); BILIRUBIN,TOTAL 0.3 mg/dL (0.2-1.3); BLOOD UREA NITROGEN 28 mg/dL (7-20); CALCIUM 9.2 mg/dL (8.4-10.2); CARBON DIOXIDE 25 mmol/L (22-30); CHLORIDE 101 mmol/L (98-107); GLUCOSE 189 mg/dL (75-110); POTASSIUM 4.9 mmol/L (3.6-5.0); TOTAL PROTEIN 6.9 g/dL (6.3-8.2)
[2018-07-03] MEDS: LEVOFLOXACIN 500 MG/D5W RTU 500 MG/100 ML RTUPB IV SCH (12:34)
[2018-07-03] MEDS: FLUTICASONE NASAL SPRAY 50 MCG/SPRY 120 SPRAY/16 GM NASL SCH (14:54)
[2018-07-03] MEDS: LATANOPROST 0.005% OPH SOLN 2.5 ML OU SCH (22:04)
[2018-07-04] MEDS: INSULIN LISPRO 100 UNIT/ML 3 ML VIAL SUBCUT SCH ×4 (05:24→17:24)
[2018-07-04] MEDS: LEVOTHYROXINE SODIUM 0.1 MG TABLET PO SCH (05:27)
[2018-07-04] MEDS: LEVOTHYROXINE SODIUM 0.025 MG TABLET PO SCH (05:27)
[2018-07-04] MEDS: NORMAL SALINE 1000 ML 1,000 ML IV PRN (05:29)
--- NOTE | 2018-07-04 11:08 | PDOC PROGRESS REPORT ---
Subjective Progress Note for:: 07/04/18 Subjective:: 07/03/2018 67-year-old female admitted for acute encephalopathy most likely secondary to UTI and sepsis. This morning patient alert and awake communicating well. She speaks minimal Lebanese. She is able to give her date of she did know where she is at and she told me she cannot walk complaining of cramps in the hands. T-max is 99.3 no acute events in the last 24 hours. 07/04/2018-this elderly female admitted for acute encephalopathy most likely secondary to UTI and sepsis. Patient is alert and awake not in distress communicating okay. Urine culture came back positive for ESBL E. coli. Presently on IV Rocephin and Levaquin unfortunately E. coli is resistant to those antibiotics switch the medication to imipenem 1 g IV every 8 hours. No acute events in the last 24 hours patient is afebrile. Reason For Visit: ACUTE ENCEPHALOPATHY, SEPSIS Physical Exam Vital Signs: Temp Pulse Resp BP Pulse Ox 98.7 F 91 19 155/81 H 100 07/04/18 08:49 07/04/18 08:49 07/04/18 08:49 07/04/18 08:49 07/04/18 08:49 Intake & Output 07/03/18 07/04/18 07/05/18 06:59 06:59 06:59 Intake Total 4097 3420 Balance 4097 3420 Weight 97 kg General appearance: PRESENT: no acute distress, obese, other - Patient is be dbound. Head exam: PRESENT: atraumatic Eye exam: PRESENT: PERRLA Mouth exam: PRESENT: moist, tongue midline Neck exam: ABSENT: carotid bruit, JVD, lymphadenopathy, thyromegaly Respiratory exam: PRESENT: clear to auscultation jacobo. ABSENT: rales, rhonchi, wheezes Cardiovascular exam: PRESENT: tachycardia GI/Abdominal exam: PRESENT: normal bowel sounds, soft. ABSENT: distended, guarding, mass, organolmegaly, rebound, tenderness Extremities exam: PRESENT: full ROM. ABSENT: calf tenderness, clubbing, pedal edema Neurological exam: PRESENT: alert, awake, oriented to person, oriented to place, oriented to time, oriented to situation, CN II-XII grossly intact. ABSENT: mo tor sensory deficit Psychiatric exam: PRESENT: appropriate affect, normal mood. ABSENT: homicidal ideation, suicidal ideation Results Laboratory Results: 07/03/18 05:08 07/03/18 05:08 07/03/18 07/03/18 05:08 05:08 WBC 10.7 H RBC 3.81 Hgb 10.7 L Hct 32.4 L MCV 85 MCH 28.2 MCHC 33.2 RDW 15.7 H Plt Count 225 Seg Neutrophils % 79.7 H Lymphocytes % 11.1 L Monocytes % 5.6 Eosinophils % 3.2 Basophils % 0.4 Absolute Neutrophils 8.6 H Absolute Lymphocytes 1.2 Absolute Monocytes 0.6 Absolute Eosinophils 0.3 Absolute Basophils 0.0 Sodium 136.0 L Potassium 4.9 Chloride 101 Carbon Dioxide 25 Anion Gap 10 BUN 28 H Creatinine 0.78 Est GFR ( Amer) > 60 Est GFR (Non-Af Amer) > 60 Glucose 189 H Calcium 9.2 Magnesium 2.0 Total Bilirubin 0.3 AST 17 ALT 32 Alkaline Phosphatase 109 Total Protein 6.9 Albumin 3.8 07/02/18 06:50 Catheterized Urine Urine Culture - Final Escherichia Coli Esbl 07/02/18 07/02/18 07:21 12:12 Troponin I < 0.012 NT-Pro-B Natriuret Pep 233 Impressions: Head CT 07/02/18 00:00 IMPRESSION: MILD CHRONIC CHANGES OF ATROPHY AND MICROVASCULAR ISCHEMIA. NO ACUTE PROCESS. EVIDENCE OF ACUTE STROKE: NO. Chest X-Ray 07/02/18 06:05 IMPRESSION: No acute cardiopulmonary findings. Mildly enlarged cardiac silhouette. Abdomen/Pelvis CT 07/02/18 10:35 IMPRESSION: No acute findings Assessment & Plan - Diagnosis (1) Acute encephalopathy Is this a current diagnosis for this admission?: Yes Plan: 07/03/[id number]-wiwz-old female admitted for altered mental status/acute encephalopathy most likely secondary to UTI causing sepsis. Urine culture is positive for gram-negative rods. Blood cultures are negative so far. Patient is presently on IV Rocephin 1 g daily IV Levaquin 400 mg daily started today. Patient is alert and awake, communicating well today. 07/04/[id number]-tozg-old female admitted for acute and coagulopathy most likely secondary to UTI causing sepsis. Urine culture showing ESBL E. coli resistant to ceftriaxone and Levaquin. Those antibiotics are discontinued today started on imipenem 1 g every 8 hours. Cultures are negative. Patient is awake alert communicating well with her limited Lebanese. (2) Sepsis Is this a current diagnosis for this admission?: Yes (3) Acute renal failure Qualifiers: Acute renal failure type: unspecified Qualified Code(s): N17.9 - Acute kidney failure, unspecified Is this a current diagnosis for this admission?: Yes Plan: 07/03/2018-patient's admission creatinine is 2.2 and it was improved to 1.77 today. Acute kidney injury most likely secondary to prerenal causes. Previous lab from June 2017 creatinine is 0.63. Plan is to recheck the labs tomorrow. 07/04/2018-patient admission creatinine is 2.2 it was improved to 1.77 yesterday today it was 0.78 acute kidney injury most likely prerenal causes resolved with IV fluids. Plan is to discontinue IV fluids today. (4) UTI (urinary tract infection) Qualifiers: Urinary tract infection type: site unspecified Hematuria presence: with hematuria Qualified Code(s): N39.0 - Urinary tract infection, site not specifi ed; R31.9 - Hematuria, unspecified Is this a current diagnosis for this admission?: Yes Plan: 07/04/2018-patient was admitted for UTI found to have ESBL E. coli to start on imipenem 1 g IV daily 8 hours. - Time Time Spent with patient: 25-34 minutes Medications reviewed and adjusted accordingly: Yes
[2018-07-04] MEDS: SENNOSIDES/DOCUSATE 8.6-50 MG 1 EACH TABLET PO SCH (11:10)
[2018-07-04] MEDS: MELOXICAM 15 MG TABLET PO SCH (11:10)
[2018-07-04] MEDS: ASPIRIN 81 MG TABLET, CHEWABLE PO SCH (11:10)
[2018-07-04] MEDS: BACLOFEN 10 MG TABLET PO SCH ×3 (11:11→17:25)
[2018-07-04] MEDS: FLUTICASONE NASAL SPRAY 50 MCG/SPRY 120 SPRAY/16 GM NASL SCH (11:11)
[2018-07-04] MEDS: DOCUSATE SODIUM 100 MG CAPSULE PO SCH (11:11)
[2018-07-04] MEDS: HEPARIN SOD (PORCINE) 5,000 UNIT/ML 1 ML SYRINGE SUBCUT SCH ×2 (11:11→22:16)
[2018-07-04] MEDS: SIMETHICONE 80 MG TAB.CHEW PO SCH (11:12)
[2018-07-04] MEDS: CETIRIZINE 10 MG TABLET PO SCH (11:12)
[2018-07-04] MEDS: TRAMADOL HCL 50 MG TABLET PO PRN (11:23)
[2018-07-04] MEDS: LEVOFLOXACIN 500 MG/D5W RTU 500 MG/100 ML RTUPB IV SCH (11:35)
[2018-07-04] MEDS: CEFTRIAXONE 1 GM/D5W RTU 1 GM/50 ML RTUPB IV SCH (11:35)
[2018-07-04] MEDS: ONDANSETRON HCL INJ/PF 4 MG/2 ML SDV IV PRN (13:33)
[2018-07-04] MEDS ORDERED: IMIPENEM/CILASTATIN SODIUM INJ 500 MG VIAL IV SCH (14:00)
[2018-07-04] MEDS: IMIPENEM/CILASTATIN SODIUM 500 MG in NORMAL SALINE 100 ML IV SCH ×2 (17:24→20:49)
[2018-07-04] MEDS: LATANOPROST 0.005% OPH SOLN 2.5 ML OU SCH (22:16)
[2018-07-05] MEDS: INSULIN LISPRO 100 UNIT/ML 3 ML VIAL SUBCUT SCH ×4 (00:04→17:52)
[2018-07-05] MEDS: TRAMADOL HCL 50 MG TABLET PO PRN (04:52)
[2018-07-05] MEDS: IMIPENEM/CILASTATIN SODIUM 500 MG in NORMAL SALINE 100 ML IV SCH ×4 (04:53→21:28)
[2018-07-05 05:24] LABS: ABSOLUTE BASOPHILS # (AUTO) 0.1 10^3/uL (0.0-0.2); ABSOLUTE EOSINOPHILS # (AUTO) 0.3 10^3/uL (0.0-0.6); ABSOLUTE LYMPHOCYTES (AUTO) 1.8 10^3/uL (0.5-4.7); ABSOLUTE MONOCYTES (AUTO) 0.6 10^3/uL (0.1-1.4); ABSOLUTE NEUT (AUTO) 5.1 10^3/uL (1.7-8.2); BASOPHILS % (AUTO) 0.6 % (0-2); EOSINOPHILS % (AUTO) 4.3 % (0-6); HEMATOCRIT 32.3 % (36.0-47.0); HEMOGLOBIN 10.7 g/dL (12.0-15.5); LYMPHOCYTES % (AUTO) 22.5 % (13-45); MEAN CORPUSCULAR HEMOGLOBIN 28.1 pg (27.0-33.4); MEAN CORPUSCULAR HGB CONC 33.1 g/dL (32.0-36.0); MEAN CORPUSCULAR VOLUME 85 fl (80-97); MONOCYTES % (AUTO) 7.6 % (3-13); PLATELET COUNT 195 10^3/uL (150-450); RED BLOOD COUNT 3.81 10^6/uL (3.72-5.28); RED CELL DISTRIBUTION WIDTH 15.4 % (11.5-14.0); TOTAL CELLS COUNTED % (AUTO) 100 %; WHITE BLOOD COUNT 7.9 10^3/uL (4.0-10.5)
[2018-07-05] MEDS: LEVOTHYROXINE SODIUM 0.025 MG TABLET PO SCH (06:12)
[2018-07-05] MEDS: LEVOTHYROXINE SODIUM 0.1 MG TABLET PO SCH (06:13)
[2018-07-05 08:15] LABS: ALANINE AMINOTRANSFERASE 33 U/L (9-52); ALBUMIN 3.2 g/dL (3.5-5.0); ALKALINE PHOSPHATASE 97 U/L (38-126); ANION GAP 7 (5-19); ASPARTATE AMINO TRANSFERASE 17 U/L (14-36); BILIRUBIN,DIRECT 0.2 mg/dL (0.0-0.4); BILIRUBIN,TOTAL 0.2 mg/dL (0.2-1.3); BLOOD UREA NITROGEN 8 mg/dL (7-20); CALCIUM 9.2 mg/dL (8.4-10.2); CARBON DIOXIDE 26 mmol/L (22-30); CHLORIDE 104 mmol/L (98-107); GLUCOSE 192 mg/dL (75-110); SODIUM 137.3 mmol/L (137-145); TOTAL PROTEIN 6.3 g/dL (6.3-8.2)
[2018-07-05] MEDS: SENNOSIDES/DOCUSATE 8.6-50 MG 1 EACH TABLET PO SCH (08:34)
[2018-07-05] MEDS: MELOXICAM 15 MG TABLET PO SCH (08:34)
[2018-07-05] MEDS: ASPIRIN 81 MG TABLET, CHEWABLE PO SCH (10:59)
[2018-07-05] MEDS: SIMETHICONE 80 MG TAB.CHEW PO SCH (10:59)
[2018-07-05] MEDS: BACLOFEN 10 MG TABLET PO SCH ×3 (10:59→17:52)
[2018-07-05] MEDS: DOCUSATE SODIUM 100 MG CAPSULE PO SCH (10:59)
[2018-07-05] MEDS: CETIRIZINE 10 MG TABLET PO SCH (10:59)
[2018-07-05] MEDS: HEPARIN SOD (PORCINE) 5,000 UNIT/ML 1 ML SYRINGE SUBCUT SCH ×2 (11:00→21:31)
[2018-07-05] MEDS: FLUTICASONE NASAL SPRAY 50 MCG/SPRY 120 SPRAY/16 GM NASL SCH (11:00)
[2018-07-05] MEDS ORDERED: MAG HYDROX/AL HYDROX/SIMETH SUSP 30 ML UDCUP PO PRN (11:33)
--- NOTE | 2018-07-05 13:44 | PDOC PROGRESS REPORT ---
Subjective Progress Note for:: 07/05/18 Subjective:: 07/03/2018 67-year-old female admitted for acute encephalopathy most likely secondary to UTI and sepsis. This morning patient alert and awake communicating well. She speaks minimal Austrian. She is able to give her date of she did know where she is at and she told me she cannot walk complaining of cramps in the hands. T-max is 99.3 no acute events in the last 24 hours. 07/04/2018-this elderly female admitted for acute encephalopathy most likely secondary to UTI and sepsis. Patient is alert and awake not in distress communicating okay. Urine culture came back positive for ESBL E. coli. Presently on IV Rocephin and Levaquin unfortunately E. coli is resistant to those antibiotics switch the medication to imipenem 1 g IV every 8 hours. No acute events in the last 24 hours patient is afebrile. 07/05/2018-no acute events in the last 24 hours. Patient is afebrile. Temperature is 98.1. Patient is complaining of stomachaches requesting Maalox. Other than that no complaints. Reason For Visit: ACUTE ENCEPHALOPATHY, SEPSIS Physical Exam Vital Signs: Temp Pulse Resp BP Pulse Ox 97.9 F 86 17 138/73 H 99 07/05/18 11:21 07/05/18 11:21 07/05/18 11:21 07/05/18 11:21 07/05/18 11:21 Intake & Output 07/04/18 07/05/18 07/06/18 06:59 06:59 06:59 Intake Total 3420 2456 100 Balance 3420 2456 100 Weight 93.1 kg General appearance: PRESENT: no acute distress, obese Head exam: PRESENT: atraumatic Neck exam: ABSENT: carotid bruit, JVD, lymphadenopathy, thyromegaly Respiratory exam: PRESENT: clear to auscultation jacobo. ABSENT: rales, rhonchi, wheezes Cardiovascular exam: PRESENT: tachycardia GI/Abdominal exam: PRESENT: normal bowel sounds, soft. ABSENT: distended, guar ding, mass, organolmegaly, rebound, tenderness Extremities exam: PRESENT: full ROM, +1 edema. ABSENT: calf tenderness, clubbing, pedal edema Neurological exam: PRESENT: alert, awake, oriented to person, oriented to place, oriented to time, oriented to situation, CN II-XII grossly intact. ABSENT: motor sensory deficit Psychiatric exam: PRESENT: appropriate affect, normal mood. ABSENT: homicidal ideation, suicidal ideation Results Laboratory Results: 07/05/18 05:08 07/05/18 05:08 07/05/18 07/05/18 05:08 05:08 WBC 7.9 RBC 3.81 Hgb 10.7 L Hct 32.3 L MCV 85 MCH 28.1 MCHC 33.1 RDW 15.4 H Plt Count 195 Seg Neutrophils % 65.0 Lymphocytes % 22.5 Monocytes % 7.6 Eosinophils % 4.3 Basophils % 0.6 Absolute Neutrophils 5.1 Absolute Lymphocytes 1.8 Absolute Monocytes 0.6 Absolute Eosinophils 0.3 Absolute Basophils 0.1 Sodium 137.3 Potassium 4.0 Chloride 104 Carbon Dioxide 26 Anion Gap 7 BUN 8 Creatinine 0.57 Est GFR ( Amer) > 60 Est GFR (Non-Af Amer) > 60 Glucose 192 H Calcium 9.2 Magnesium 1.8 Total Bilirubin 0.2 AST 17 ALT 33 Alkaline Phosphatase 97 Total Protein 6.3 Albumin 3.2 L 07/02/18 07/02/18 07:21 12:12 Troponin I < 0.012 NT-Pro-B Natriuret Pep 233 Impressions: Head CT 07/02/18 00:00 IMPRESSION: MILD CHRONIC CHANGES OF ATROPHY AND MICROVASCULAR ISCHEMIA. NO ACUTE PROCESS. EVIDENCE OF ACUTE STROKE: NO. Chest X-Ray 07/02/18 06:05 IMPRESSION: No acute cardiopulmonary findings. Mildly enlarged cardiac silhouette. Abdomen/Pelvis CT 07/02/18 10:35 IMPRESSION: No acute findings Assessment & Plan - Diagnosis (1) Acute encephalopathy Is this a current diagnosis for this admission?: Yes Plan: 07/03/[id number]-drvc-old female admitted for altered mental status/acute encephalopathy most likely secondary to UTI causing sepsis. Urine culture is positive for gram-negative rods. Blood cultures are negative so far. Patient is presently on IV Rocephin 1 g daily IV Levaquin 400 mg daily started today. Patient is alert and awake, communicating well today. 07/04/[id number]-hanr-old female admitted for acute encephalopathy most likely secondary to UTI causing sepsis. Urine culture showing ESBL E. coli resistant to ceftriaxone and Levaquin. Those antibiotics are discontinued today started on imipenem 1 g every 8 hours. Cultures are negative. Patient is awake alert communicating well with her limited Austrian. 07/05/2018-acute encephalopathy most likely secondary to UTI causing sepsis. Urine culture is positive for ESBL E. coli on imipenem 1 g every 8 hours. Blood cultures are negative. Plan is to discharge the patient to [facility] tomorrow on IV antibiotic therapy for a total duration of 1 week. (2) Sepsis Is this a current diagnosis for this admission?: Yes Plan: 07/03/2018-patient was admitted with sepsis elevated lactic acid levels, urine culture is positive for gram-negative rods. Also had altered mental status with acute kidney injury. Patient is presently on IV Rocephin and started on IV Levaquin today. 07/04/2018-patient was admitted with sepsis and elevated lactic acid levels. Urine culture was positive for SBL E. coli. Patient is presently on IV imipenem. Altered mental status and acute kidney injury resolved. (3) Acute renal failure Qualifiers: Acute renal failure type: unspecified Qualified Code(s): N17.9 - Acute kidney failure, unspecified Is this a current diagnosis for this admission?: Yes Plan: 07/03/2018-patient's admission creatinine is 2.2 and it was improved to 1.77 today. Acute kidney injury most likely secondary to prerenal causes. Previous lab from June 2017 creatinine is 0.63. Plan is to recheck the labs tomorrow. 07/04/2018-patient admission creatinine is 2.2 it was improved to 1.77 yesterday today it was 0.78 acute kidney injury most likely prerenal causes resolved with IV fluids. Plan is to discontinue IV fluids today. 07/05/2018-creatinine on admission is 2.2 it came down 0.57 today, acute kidney injury most likely due to prerenal causes resolved. (4) UTI (urinary tract infection) Qualifiers: Urinary tract infection type: site unspecified Hematuria presence: with hematuria Qualified Code(s): N39.0 - Urinary tract infection, site not specified; R31.9 - Hematuria, unspecified Is this a current diagnosis for this admission?: Yes Plan: 07/04/2018-patient was admitted for UTI found to have ESBL E. coli to start on imipenem 1 g IV daily 8 hours. 07/05/2018-patient is admitted with UTI/sepsis urine culture is positive for ESBL E. coli on imipenem 1 g 3 times a day. - Time Time Spent with patient: 15-24 minutes Medications reviewed and adjusted accordingly: Yes Anticipated discharge: SNF
[2018-07-05] MEDS: LATANOPROST 0.005% OPH SOLN 2.5 ML OU SCH (21:30)
[2018-07-06] MEDS: INSULIN LISPRO 100 UNIT/ML 3 ML VIAL SUBCUT SCH ×3 (01:56→17:03)
[2018-07-06] MEDS: IMIPENEM/CILASTATIN SODIUM 500 MG in NORMAL SALINE 100 ML IV SCH ×3 (02:04→15:05)
[2018-07-06] MEDS: LEVOTHYROXINE SODIUM 0.1 MG TABLET PO SCH (06:59)
[2018-07-06] MEDS: LEVOTHYROXINE SODIUM 0.025 MG TABLET PO SCH (06:59)
[2018-07-06] MEDS: SENNOSIDES/DOCUSATE 8.6-50 MG 1 EACH TABLET PO SCH (08:21)
[2018-07-06] MEDS: MELOXICAM 15 MG TABLET PO SCH (08:21)
[2018-07-06] MEDS: SIMETHICONE 80 MG TAB.CHEW PO SCH (09:53)
[2018-07-06] MEDS: ASPIRIN 81 MG TABLET, CHEWABLE PO SCH (09:55)
[2018-07-06] MEDS: DOCUSATE SODIUM 100 MG CAPSULE PO SCH (09:55)
[2018-07-06] MEDS: HEPARIN SOD (PORCINE) 5,000 UNIT/ML 1 ML SYRINGE SUBCUT SCH (09:55)
[2018-07-06] MEDS: CETIRIZINE 10 MG TABLET PO SCH (09:55)
[2018-07-06] MEDS: BACLOFEN 10 MG TABLET PO SCH ×2 (09:55→13:54)
[2018-07-06] MEDS: TRAMADOL HCL 50 MG TABLET PO PRN (10:10)
[2018-07-06] MEDS: FLUTICASONE NASAL SPRAY 50 MCG/SPRY 120 SPRAY/16 GM NASL SCH (10:30)
--- NOTE | 2018-07-06 12:24 | PDOC TRANSFER SUMMARY ---
General - Admit/Disc Date/PCP Admission Date/Primary Care Provider: 07/02/18 09:06 AMY HAIDER MD Discharge Date: 07/06/18 - Discharge Diagnosis (1) Acute encephalopathy Is this a current diagnosis for this admission?: Yes Summary: 07/03/[id number]-thvo-old female admitted for altered mental status/acute encephalopathy most likely secondary to UTI causing sepsis. Urine culture is p ositive for gram-negative rods. Blood cultures are negative so far. Patient is presently on IV Rocephin 1 g daily IV Levaquin 400 mg daily started today. Patient is alert and awake, communicating well today. 07/04/[id number]-hgkf-old female admitted for acute encephalopathy most likely secondary to UTI causing sepsis. Urine culture showing ESBL E. coli resistant to ceftriaxone and Levaquin. Those antibiotics are discontinued today started on imipenem 1 g every 8 hours. Cultures are negative. Patient is awake alert communicating well with her limited Algerian. 07/05/2018-acute encephalopathy most likely secondary to UTI causing sepsis. Urine culture is positive for ESBL E. coli on imipenem 1 g every 8 hours. Blood cultures are negative. Plan is to discharge the patient to [facility] tomorrow on IV antibiotic therapy for a total duration of 1 week. 07/16/[id number]-idlz-old female intermediate resident admitted for acute encephalopathy most likely secondary to UTI causing sepsis. Urine culture is positive for ESBL E. coli and imipenem 1 g every 6 hours. Blood cultures are negative. She is going to [facility] today on IV imipenem every 6 hours for the next 5 days. (2) Sepsis Is this a current diagnosis for this admission?: Yes Summary: 07/03/2018-patient was admitted with sepsis elevated lactic acid levels, urine culture is positive for gram-negative rods. Also had altered mental status with acute kidney injury. Patient is presently on IV Rocephin and started on IV Levaquin today. 07/04/2018-patient was admitted with sepsis and elevated lactic acid levels. Urine culture was positive for SBL E. coli. Patient is presently on IV imipenem. Altered mental status and acute kidney injury resolved. 07/06/2018-patient was admitted with sepsis and elevated lactic acid levels urine culture is positive for ESBL E. coli she is going to [facility] on imipenem IV every 6 hours for the next 5 days. (3) Acute renal failure Is this a current diagnosis for this admission?: Yes Summary: 07/03/2018-patient's admission creatinine is 2.2 and it was improved to 1.77 today. Acute kidney injury most likely secondary to prerenal causes. Previous lab from June 2017 creatinine is 0.63. Plan is to recheck the labs tomorrow. 07/04/2018-patient admission creatinine is 2.2 it was improved to 1.77 yesterday today it was 0.78 acute kidney injury most likely prerenal causes resolved with IV fluids. Plan is to discontinue IV fluids today. 07/05/2018-creatinine on admission is 2.2 it came down 0.57 today, acute kidney injury most likely due to prerenal causes resolved. 07/06/2018-patient's admission creatinine is 2.2 it was improved to 0.57 yesterday acute kidney injury resolved acute kidney injury most likely due to prerenal causes. (4) UTI (urinary tract infection) Is this a current diagnosis for this admission?: Yes Summary: 07/04/2018-patient was admitted for UTI found to have ESBL E. coli to start on imipenem 1 g IV daily 8 hours. 07/05/2018-patient is admitted with UTI/sepsis urine culture is positive for ESBL E. coli on imipenem 1 g 3 times a day. 07/06/2018-patient was admitted with UTI and sepsis urine culture is positive for ESBL E. coli and imipenem 1 g every 8 hours and he is going to the intermediate for 5 more days of IV antibiotic therapy - Additional Information Discharge Diet: Diabetic Discharge Activity: Bedrest Prescriptions: Imipenem/Cilastatin Sodium [Primaxin Inj 500 mg Vial] 500 mg IV Q6A 5 Days vial Tramadol HCl [Ultram 50 mg Tablet] 50 mg PO Q8HP PRN #60 tablet PRN Reason: Home Medications: Aspirin [Aspirin 81 mg Chewable Tablet] 81 mg PO DAILY 08/31/15 Metformin HCl [Glucophage] 500 mg PO BID 08/31/15 Simethicone [Gas Relief] 180 mg PO DAILY 08/31/15 Acetaminophen [Tylenol Extra Strength 500 mg Tablet] 1 tab PO Q8 01/16/16 Meloxicam [Mobic 15 mg Tablet] 15 mg PO QAM 01/16/16 Baclofen [Baclofen 10 mg Tablet] 10 mg PO TID 07/02/18 Brimonidine Tartrate/Timolol [Combigan 0.2%-0.5% Eye Drops] 5 ml OU TID 07/02/18 Brinzolamide/Brimonidine Tart [Simbrinza 1%-0.2% Eye Drops] 1 drop RT_EYE TID 07/02/18 Cetirizine HCl [Zyrtec 10 mg Tablet] 10 mg PO DAILY 07/02/18 Docusate Sodium [Colace 100 mg Capsule] 100 mg PO DAILY 07/02/18 Fluticasone Propionate [Flonase Nasal Byron 50 Mcg/Byron 16 gm] 1 spray NASL DAILY 07/02/18 Furosemide [Lasix 40 mg Tablet] 40 mg PO QAM 07/02/18 Latanoprost [Xalatan 0.005% Oph Soln 2.5 ml] 1 drop OU QHS 07/02/18 Levothyroxine Sodium [Synthroid] 125 mcg PO Q6AM 07/02/18 Sennosides/Docusate Sodium [Senna-S Tablet] 2 tab PO QAM 07/02/18 Trolamine Salicylate/Aloe Vera [Aspercreme 10% Cream] 1 applic TP TID 07/02/18 Imipenem/Cilastatin Sodium [Primaxin Inj 500 mg Vial] 500 mg IV Q6A 5 Days vial 07/06/18 Tramadol HCl [Ultram 50 mg Tablet] 50 mg PO Q8HP PRN #60 tablet 07/06/18 History of Present Illness Admission Date/PCP: 07/02/18 09:06 AMY HAIDER MD History of Present Illness: JOZEF RICHARDSON is a 67 year old female 67 year old female with a PMH of HTN, history of seizure, dementia, DM 2, hypothyroidism and hyperlipidemia who was brought in from a custodial home who was brought in due to worsening confusion. Patient is mostly Greenlandic- speaking. Per ER provider, EMS states her baseline is loud speaking and argumentative with staff and that patient was reportedly having decreased mental status yesterday becoming more somnolent and confused. Patient also had reported fever earlier today at 3 am. In the ER, she was found to have UTI and elevated lactate and was started on IV fluids. Upon encounter, she is lethargic. She is arousable and is able to tell me her name and that she knows she is a hospital but needs constant prompting to carry on with conversation. She does say she has been having some discomfort urinating and complains of vague hypogastric discomfort. Physical Exam Vital Signs: Temp Pulse Resp BP Pulse Ox 97.8 F 75 20 167/86 H 100 07/06/18 08:55 07/06/18 08:55 07/06/18 08:55 07/06/18 08:55 07/06/18 08:55 Intake & Output 07/05/18 07/06/18 07/07/18 06:59 06:59 06:59 Intake Total 2452022 Balance 2452022 Weight 93.1 kg 93.4 kg General appearance: PRESENT: no acute distress, obese Head exam: PRESENT: atraumatic Eye exam: PRESENT: PERRLA Mouth exam: PRESENT: moist, tongue midline Neck exam: ABSENT: carotid bruit, JVD, lymphadenopathy, thyromegaly Respiratory exam: PRESENT: clear to auscultation jacobo. ABSENT: rales, rhonchi, wheezes Cardiovascular exam: PRESENT: tachycardia GI/Abdominal exam: PRESENT: normal bowel sounds, soft. ABSENT: distended, guarding, mass, organolmegaly, rebound, tenderness Extremities exam: PRESENT: full ROM. ABSENT: calf tenderness, clubbing, pedal edema Neurological exam: PRESENT: alert, awake, oriented to person, oriented to place, oriented to time, oriented to situation, CN II-XII grossly intact. ABSENT: motor sensory deficit Psychiatric exam: PRESENT: appropriate affect, normal mood. ABSENT: homicidal ideation, suicidal ideation Results Laboratory Results: 07/05/18 05:08 07/05/18 05:08 07/02/18 07/02/18 07:21 12:12 Troponin I < 0.012 NT-Pro-B Natriuret Pep 233 Impressions: Head CT 07/02/18 00:00 IMPRESSION: MILD CHRONIC CHANGES OF ATROPHY AND MICROVASCULAR ISCHEMIA. NO ACUTE PROCESS. EVIDENCE OF ACUTE STROKE: NO. Chest X-Ray 07/02/18 06:05 IMPRESSION: No acute cardiopulmonary findings. Mildly enlarged cardiac silhouette. Abdomen/Pelvis CT 07/02/18 10:35 IMPRESSION: No acute findings Transfer Plan - Time Spent with Patient Time spent with patient: Greater than 30 Minutes Qualifiers - * PATIENT BEING DISCHARGED WITH ANY OF THE FOLLOWING DIAGNOSIS: No VTE patient discharged on overlapping Therapy?: No
[2018-07-06 17:47] VITALS: BP 177/85
== END 2018-07-06 18:09 | DRG 872 ==
LOC: ER 05:55 → EH 09:06 → 4N 11:54
PROVIDERS: ADMIT Internal Medicine; ATTEND Internal Medicine
DX: A41.9 Sepsis, unspecified organism (principal); N39.0 Urinary tract infection, site not specified; N17.9 Acute kidney failure, unspecified; E87.5 Hyperkalemia; E11.8 Type 2 diabetes mellitus with unspecified complications; F03.90 Unspecified dementia, unspecified severity, without behavioral disturbance, psychotic disturbance, mood disturbance, and anxiety; G40.909 Epilepsy, unspecified, not intractable, without status epilepticus; E78.00 Pure hypercholesterolemia, unspecified; I10 Essential (primary) hypertension; E03.9 Hypothyroidism, unspecified; K21.9 Gastro-esophageal reflux disease without esophagitis; F31.9 Bipolar disorder, unspecified; F25.9 Schizoaffective disorder, unspecified; B96.20 Unspecified Escherichia coli [E. coli] as the cause of diseases classified elsewhere; Z16.12 Extended spectrum beta lactamase (ESBL) resistance; Z79.84 Long term (current) use of oral hypoglycemic drugs; Z79.82 Long term (current) use of aspirin; Z79.899 Other long term (current) drug therapy
CPT/HCPCS: 36415; 51701; 70450; 71045; 74176; 80048; 80053; 81001; 82803; 82962; 83605; 83690; 83735; 83880; 84443; 84484; 85025; 85610; 87040; 87086; 87088; 87186; 93005; 93010; 96365; 96367; 99285; J0696; J0743; J1644; J1815; J1956; J2405; J3490; J7030; J7120

== ENCOUNTER 2018-07-07 16:31 | Emergency (ER) | payer MEDICARE, MEDICAID ==
[2018-07-07 16:39] VITALS: BP 161/77
--- NOTE | 2018-07-07 16:46 | ER Document Report ---
ED General - General Stated Complaint: DEHYDRATION Time Seen by Provider: 07/07/18 16:43 Primary Care Provider: AMY HAIDER MD [Primary Care Provider] - Follow up as needed Mode of Arrival: Medic Information source: Emergency Med Personnel, Outside Facility Records Notes: Patient is a 67-year-old female who was just discharged from the hospital on 5 days of IV antibiotics due to recent admission for sepsis. Patient was discharged back to shelter facility with an IV, they gave her 1 dose of her antibiotics and it blew the IV today, so the [facility] sent her here to replace the IV. Patient is afebrile and her daughter states that she is doing much better than when she was in the hospital. TRAVEL OUTSIDE OF THE [place] IN LAST 30 DAYS: No - Related Data Allergies/Adverse Reactions: levetiracetam [From [facility]] Allergy (Unknown, Verified 07/02/18 14:32) Past Medical History - General Information source: Relative - Social History Smoking Status: Unknown if Ever Smoked Family History: Reviewed & Not Pertinent - Past Medical History Cardiac Medical History: Reports: Hx Hypercholesterolemia, Hx Hypertension Neurological Medical History: Reports: Hx Seizures - Negative EEG Endocrine Medical History: Reports: Hx Diabetes Mellitus Type 2, Hx Hypothyroidism Renal/ Medical History: Denies: Hx Peritoneal Dialysis GI Medical History: Reports: Hx Gastroesophageal Reflux Disease Psychiatric Medical History: Reports: Hx Bipolar Disorder - skitzoaffective dementia, Hx Dementia, Hx Depression Past Surgical History: Reports: Hx Tubal Ligation - Immunizations Hx Diphtheria, Pertussis, Tetanus Vaccination: No Review of Systems - Review of Systems Constitutional: No symptoms reported EENT: No symptoms reported Cardiovascular: No symptoms reported Respiratory: No symptoms reported Gastrointestinal: No symptoms reported Genitourinary: No symptoms reported Female Genitourinary: No symptoms reported Musculoskeletal: No symptoms reported Skin: No symptoms reported Hematologic/Lymphatic: No symptoms reported Neurological/Psychological: No symptoms reported Physical Exam - Vital signs Vitals: Temp Pulse Resp BP Pulse Ox 98.0 F 82 20 161/77 H 95 07/07/18 16:38 07/07/18 16:38 07/07/18 16:38 07/07/18 16:38 07/07/18 16:38 - Notes Notes: PHYSICAL EXAMINATION: GENERAL: Appears older than stated age, chronically ill-appearing, but in no acute distress. HEAD: Atraumatic, normocephalic. EYES: Pupils equal round and reactive to light, extraocular movements intact, sclera anicteric, conjunctiva are normal. LUNGS: CTAB and equal. No wheezes rales or rhonchi. HEART: Regular rate and rhythm without murmurs ABDOMEN: Soft, no tenderness. No guarding, no rebound Course - Re-evaluation Re-evalutation: 07/07/18 19:26 IV was replaced easily and quickly, patient discharged back to shelter facility where they have her IV antibiotics waiting. - Vital Signs Vital signs: Temp Pulse Resp BP Pulse Ox 98.0 F 82 20 161/77 H 95 07/07/18 16:38 07/07/18 16:38 07/07/18 16:38 07/07/18 16:38 07/07/18 16:38 Discharge - Discharge Clinical Impression: Normal exam Condition: Stable Disposition: HOME-SNF (ED ONLY) Referrals: AMY HAIDER MD [Primary Care Provider] - Follow up as needed
== END 2018-07-07 17:40 ==
LOC: ER 16:31
DX: Z45.2 Encounter for adjustment and management of vascular access device (principal); A41.9 Sepsis, unspecified organism; I10 Essential (primary) hypertension; E11.9 Type 2 diabetes mellitus without complications; Z88.8 Allergy status to other drugs, medicaments and biological substances
CPT/HCPCS: 99281